=== PATIENT | female | born 1980 | race Caucasian/White ===

== ENCOUNTER 2024-03-03 08:20 | Outpatient (CLI) | payer OTHER, SELFPAY ==
--- NOTE | 2024-03-03 08:45 | CRLHL7_ITS ---
For Patients: As a result of the Cures Act, medical imaging exams and procedure reports are released immediately into your electronic medical record. You may view this report before your referring provider. If you have questions, please contact your health care provider. BILATERAL SCREENING MAMMOGRAM WITH COMPUTER-AIDED DETECTION AND TOMOSYNTHESIS TECHNIQUE: CC and MLO views were obtained. These mammographic images have been obtained using full-field digital technique. These mammographic images were interpreted with the benefit of computer-aided detection. Breast tomosynthesis was used in this interpretation. COMPARISON FILM: 05/09/2021, 08/17/22. FINDINGS: The breasts are extremely dense, which lowers the sensitivity of mammography. IMPRESSION: There is no radiographic evidence for malignancy. ASSESSMENT: BI-RADS Category 1: Negative RECOMMENDATION: Routine screening mammogram in 1 year. A lay language report of this examination will be provided to the patient. ZIA FAJARDO M.D. Diagnostic Radiologist [email or web address] Transcribed: 03/13/2024, 4:[address]/Dictated by: Zia Fajardo MD @ 03/13/2024 8:51:[address]/Dictated by: Zia Fajardo MD @ 03/13/2024 8:51:00 AM (Electronically Signed)
== END 2024-03-03 08:21 | disposition home or self-care (01) ==
LOC: MAMMO 08:25
PROVIDERS: Visit Provider Physician Assistant
DX: Z12.31 Encounter for screening mammogram for malignant neoplasm of breast (principal); R92.333 Mammographic heterogeneous density, bilateral breasts
CPT/HCPCS: 77063; 77067

== ENCOUNTER 2024-05-05 10:16 | Outpatient (CLI) | payer OTHER, SELFPAY ==
--- NOTE | 2024-05-05 11:37 | W.ANESCHARGE ---
Anesthesia Charges Start Date/Time Anesthesia Start Date: 05/05/24 Anesthesia Start Time: 11:13 Stop Date/Time Anesthesia Stop Date: 05/05/24 Anesthesia Stop Time: 11:36
--- NOTE | 2024-05-05 12:19 | W.ANESCHARGE ---
Anesthesia Charges Start Date/Time Anesthesia Start Date: 05/05/24 Anesthesia Start Time: 11:13 Stop Date/Time Anesthesia Stop Date: 05/05/24 Anesthesia Stop Time: 11:36
== END 2024-05-05 10:17 | disposition home or self-care (01) ==
LOC: OP CLINIC 10:17
PROVIDERS: Visit Provider Surgery
DX: R19.4 Change in bowel habit (principal)
CPT/HCPCS: 00811; 45380; 88305; J2704

== ENCOUNTER 2025-03-16 09:12 | Outpatient (CLI) | payer OTHER, SELFPAY | END 2025-03-16 09:13 | disposition home or self-care (01) | LOC: NFLDREF 03-19 07:41 | PROVIDERS: PCP Family Medicine; Referring Provider Family Medicine; Visit Provider Family Medicine | DX: K59.09 Other constipation (principal); Z13.6 Encounter for screening for cardiovascular disorders | CPT/HCPCS: 80053; 80061; 84443 ==